=== PATIENT | female | born 1975 | race Caucasian/White ===

== ENCOUNTER 2024-02-18 19:20 | Inpatient (IN) ==
[2024-02-18] MEDS ORDERED: Lidocaine 1% VIAL 10 MG/ML 30 ML VIAL INJ PRN (21:54)
[2024-02-18] MEDS: Dinoprostone 10 MG VAG.SUPP VAGINAL ONE (22:44)
[2024-02-19 01:27] LABS: Urine Appearance Extra Turbid; Urine Bilirubin Negative (Negative); Urine Blood Negative (Negative); Urine Glucose Negative (Negative); Urine Ketones Trace (Negative); Urine Nitrite Negative (Negative); Urine Protein 1+ (>=30 mg/dL) (Negative); Urine Specific Gravity 1.042 (1.002-1.030); Urine Urobilinogen Negative (Negative)
[2024-02-19] MEDS: Nalbuphine 10 MG/ML 1 ML VIAL IM PRN (01:35)
[2024-02-19 01:48] LABS: Urine Benzodiazepine Screen None Detected (None Detect); Urine Cannabinoids Screen None Detected (None Detect); Urine Opiates Screen None Detected (None Detect)
[2024-02-19 02:21] LABS: Urine Bacteria Absent /HPF (Absent); Urine Red Blood Cell Absent /HPF (0-Trace); Urine Squamous Epithelial Cell Present /HPF (Absent); Urine White Blood Cell Absent /HPF (0-Trace)
[2024-02-19 03:29] LABS: Urine Color Yellow
[2024-02-19 09:06] LABS: ABS Eosinophils 0.1 10^3/uL (0.0-0.5); ABS Lymphocytes 2.1 10^3/uL (1.0-4.8); ABS Monocytes 0.8 10^3/uL (0.0-0.9); ABS Neutrophils 3.3 10^3/uL (1.5-7.6); Eosinophil % 2.3 %; Hematocrit 30.1 % (35-45); Hemoglobin 10.2 g/dL (11.5-14.3); Mean Corpuscular Hemoglobin 29.8 pg (27-33); Mean Corpuscular Hgb Conc 33.9 g/dL (31-36); Mean Corpuscular Volume 87.8 fL (80-97); Mean Platelet Volume 9.3 fL (7.5-11.2); Platelet Count 188 10^3/uL (150-450); Red Blood Count 3.43 10^6/uL (3.63-4.92); Red Cell Distribution Width 17.8 % (12-17); White Blood Count 6.3 10^3/uL (3.8-11.8)
[2024-02-19 09:39] LABS: Albumin 3.4 g/dL (3.2-5.2); Albumin/Globulin Ratio 1.6 (1-3); Calcium 8.5 mg/dL (8.6-10.3); Creatinine, Serum 0.42 mg/dL (0.51-0.95); Globulin 2.1 g/dL (2-4); Potassium 3.8 mmol/L (3.5-5.0); Total Bilirubin 0.4 mg/dL (0.2-1.0); Total Protein 5.5 g/dL (6.4-8.9); eGFR CKD-EPI 121.3 (>60)
[2024-02-19] MEDS: Buffered Lidocaine 1% SYRIN 1 ml INTRADERM ONE (11:56)
[2024-02-19] MEDS: miSOPROStol 100 mcg TAB VAGINAL ONE (14:05)
[2024-02-20] MEDS: Glycerin ADULT 2.4 gm SUPP PR ONE (00:08)
[2024-02-20] MEDS: Lactated Ringers 1000 ml BAG 1,000 ML IV SCH (09:23)
[2024-02-20] MEDS ORDERED: ceFAZolin VIAL 2 GM in NS 0.9% 100 ml BAG 100 ML IVPB ONE (10:22)
[2024-02-20] MEDS ORDERED: Oxytocin 10 UNITS/ML 1 ML VIAL ONE (11:33)
[2024-02-20] MEDS ORDERED: Metoclopramide 5 MG/ML VIAL (10 mg) ONE (11:33)
[2024-02-20] MEDS ORDERED: fentaNYL 100 mcg/2 ml 50 MCG/ML VIAL ONE (11:33)
[2024-02-20] MEDS ORDERED: Morphine PF AMP (0.5MG/ML) 5 MG/10 ML AMP ONE (11:33)
[2024-02-20] MEDS ORDERED: Phenylephrine IV 10 MG/ML 1 ml VIAL ONE (11:33)
[2024-02-20] MEDS: ceFAZolin 2 GM/50 ML BAG IV ONE (11:47)
[2024-02-20] MEDS: Sodium Citrate/Citric Acid LIQ 15 ML UDC ONE (11:47)
[2024-02-20] MEDS ORDERED: Dexamethasone IV 4 MG/ML VIAL 1 ml VIAL ONE (12:16)
[2024-02-20] MEDS ORDERED: Midazolam 2 mg/2 ml VIAL 1 mg/ml 2 ml VIAL (2 mg) ONE ×2 (12:23→12:29)
[2024-02-20] MEDS ORDERED: Acetaminophen IV 1 GM/100ML 1,000 MG/100 ML BAG IV ONE (12:37)
[2024-02-20] MEDS ORDERED: Metoclopramide 5 MG/ML VIAL (10 mg) IV PRN (12:44)
[2024-02-20] MEDS ORDERED: Ondansetron 4 mg VIAL 2 MG/ML 2 ml VIAL IV PRN (12:44)
[2024-02-20] MEDS ORDERED: Acetaminophen IV 1 GM/100ML 1,000 MG/100 ML BAG IV PRN (12:44)
[2024-02-20] MEDS ORDERED: Naloxone 0.4 mg VIAL 0.4 mg/ml 1 ml VIAL IV PUSH PRN (12:44)
[2024-02-20 13:08] LABS: Urine Appearance Clear; Urine Bilirubin Negative (Negative); Urine Blood Negative (Negative); Urine Color Yellow; Urine Glucose Negative (Negative); Urine Ketones Negative (Negative); Urine Nitrite Negative (Negative); Urine Protein Trace (Negative); Urine Specific Gravity 1.021 (1.002-1.030); Urine Urobilinogen Negative (Negative); Urine pH 7.5 (5.0-8.0)
[2024-02-20] MEDS ORDERED: Witch Hazel PAD JAR TOPICAL PRN (13:40)
[2024-02-20] MEDS ORDERED: Dibucaine 1% OINT 28.35 GM TUBE PR PRN (13:40)
[2024-02-20] MEDS ORDERED: Glycerin ADULT 2.4 gm SUPP PR PRN (13:40)
[2024-02-20] MEDS: Oxytocin in LR 20,000 MILLI.UNIT/1,000 ML BAG IV SCH (13:52)
[2024-02-20] MEDS ORDERED: Lactated Ringers 1000 ml BAG 1,000 ML IV SCH (14:00)
[2024-02-21 07:27] LABS: ABS Basophils 0.1 10^3/uL (0.0-0.1); ABS Eosinophils 0.2 10^3/uL (0.0-0.5); ABS Lymphocytes 2.8 10^3/uL (1.0-4.8); ABS Monocytes 1.2 10^3/uL (0.0-0.9); ABS Neutrophils 6.3 10^3/uL (1.5-7.6); Eosinophil % 2.1 %; Hematocrit 30.8 % (35-45); Hemoglobin 10.7 g/dL (11.5-14.3); Mean Corpuscular Hemoglobin 30.4 pg (27-33); Mean Corpuscular Hgb Conc 34.5 g/dL (31-36); Mean Corpuscular Volume 87.9 fL (80-97); Mean Platelet Volume 9.3 fL (7.5-11.2); Platelet Count 212 10^3/uL (150-450); Red Blood Count 3.51 10^6/uL (3.63-4.92); Red Cell Distribution Width 17.7 % (12-17); White Blood Count 10.6 10^3/uL (3.8-11.8)
[2024-02-21] MEDS: Enoxaparin 40 MG/0.4 ML SYR SUBCUT SCH (07:40)
[2024-02-21] MEDS: Acetaminophen IV 1 GM/100ML 1,000 MG/100 ML BAG IV SCH ×2 (13:37→19:58)
[2024-02-21] MEDS: miSOPROStol 100 mcg TAB VAGINAL ONE (17:02)
[2024-02-22] MEDS: Oxytocin in LR 20,000 MILLI.UNIT/1,000 ML BAG IV ONE (07:29)
[2024-02-22] MEDS: Lactated Ringers 1000 ml BAG 1,000 ML IV ONE (07:31)
[2024-02-23 08:07] VITALS: BP 146/64
[2024-02-23] MEDS: Influenza Vaccine *TRI* 2024-25* 0.5 ML SYRINGE IM ONE (08:18)
== END 2024-02-23 18:37 | disposition home or self-care (01) | DRG 787 ==
LOC: MCHOBOUT 19:20 → MCHOB 20:57
PROVIDERS: ADMIT Obstetrics & Gynecology; ATTEND Obstetrics & Gynecology